=== PATIENT | female | born 1965 | race Caucasian/White ===

== ENCOUNTER 2017-08-12 09:11 | Outpatient (CLI) | payer BC ==
[2017-08-12 10:05] LABS: eGFR (African) > 60; eGFR (Non-African) > 60
== END 2017-08-12 09:12 ==
LOC: LAB 09:11
PROVIDERS: ATTEND Family Medicine
DX: Z00.00 Encounter for general adult medical examination without abnormal findings (principal); Z13.29 Encounter for screening for other suspected endocrine disorder
CPT/HCPCS: 36415; 80053; 80061; 84443

== ENCOUNTER 2017-08-27 08:18 | Day surgery (SDC) | payer BC ==
--- NOTE | 2017-08-28 10:31 | Operative Note ---
SURGEON: Wilberto Pretty MD ANESTHESIA: MAC anesthesia. ESTIMATED BLOOD LOSS: None. COMPLICATIONS: None. PREOPERATIVE DIAGNOSIS: History of colon polyps. POSTOPERATIVE DIAGNOSIS: Diverticulosis. PROCEDURE PERFORMED: Colonoscopy to cecum. INDICATIONS FOR PROCEDURE: This is a 53-year-old woman who has a history of colon polyps and presents for a colonoscopy. DESCRIPTION OF PROCEDURE: Patient was brought to the endoscopy suite and placed in the left lateral decubitus position. A rectal exam was performed which was normal. The colonoscope was inserted and passed easily to the cecum. The appendiceal orifice and ileocecal valve were identified. The prep was excellent. The colonoscope was slowly retracted. There was a greater than 6 minute withdrawal time. She had some diverticular disease in the sigmoid colon. There was no inflammation. There were no polyps or other lesions seen. The colonoscope was removed. The patient tolerated the procedure well. FINDINGS: Diverticulosis, otherwise, normal colonoscopy. DISPOSITION: I recommend a repeat colonoscopy in 5 year. cc: Dr. Jovita LOPEZ
== END 2017-08-27 08:20 ==
LOC: OPSURG 08:18
PROVIDERS: ATTEND Colon & Rectal Surgery
DX: K57.30 Diverticulosis of large intestine without perforation or abscess without bleeding (principal); Z86.010 Personal history of colon polyps
CPT/HCPCS: J2001; J2704; J7120; 45378; S1016

== ENCOUNTER 2017-10-12 15:38 | Outpatient (CLI) | payer OTHER ==
[2017-10-12 16:29] LABS: eGFR (Non-African) > 60
== END 2017-10-12 15:40 ==
LOC: LAB 15:38
PROVIDERS: ATTEND Family Medicine
DX: R79.89 Other specified abnormal findings of blood chemistry (principal)
CPT/HCPCS: 36415; 80053

== ENCOUNTER 2018-02-09 14:43 | Outpatient (CLI) | payer OTHER ==
[2018-02-09 15:20] LABS: MEAN CORPUSCULAR HEMOGLOBIN 30.9 pg (28.0-34.0); MEAN CORPUSCULAR VOLUME 91.6 fl (80.0-100.0)
== END 2018-02-09 14:44 ==
LOC: LAB 14:43
PROVIDERS: ATTEND Family Medicine
DX: M79.641 Pain in right hand (principal)
CPT/HCPCS: 85027